=== PATIENT | female | born 1995 | race Caucasian/White ===

== ENCOUNTER → 2016-12-11 | Outpatient (CLI) | payer BC ==
[~2016-12-11] MED LIST: ACID REDUCER200 MG PO; BIRTH CONTROL; DESYREL 50MG50 MG PO; LAMICTAL200 MG PO; NAPROSYN500 MG PO; NEXPLANON68 MG ID; NORCO 325 MG-51 TAB PO
== END ==
LOC: BHSO 10:45
DX: F31.81 Bipolar II disorder (principal)

== ENCOUNTER → 2017-01-21 | Outpatient (CLI) | payer BC | LOC: BHSO 09:39 | DX: F31.81 Bipolar II disorder (principal) ==

== ENCOUNTER → 2017-02-17 | Outpatient (CLI) | payer BC | LOC: BHSO 10:37 | DX: F06.32 Mood disorder due to known physiological condition with major depressive-like episode (principal) ==

== ENCOUNTER → 2017-04-24 | Outpatient (CLI) | payer BC | LOC: BHSO 08:54 | DX: F31.81 Bipolar II disorder (principal) ==

== ENCOUNTER → 2017-06-01 | Outpatient (CLI) | payer BC | LOC: BHSO 08:23 | DX: F31.81 Bipolar II disorder (principal) ==

== ENCOUNTER → 2017-10-05 | Outpatient (CLI) | payer OTHER | LOC: BHSO 09:22 | DX: F31.81 Bipolar II disorder (principal) ==

== ENCOUNTER → 2017-11-24 | Outpatient (CLI) | payer OTHER | LOC: BHSO 09:25 | DX: F31.81 Bipolar II disorder (principal) | CPT/HCPCS: G0463 ==

== ENCOUNTER → 2017-12-28 | Outpatient (CLI) | payer OTHER | LOC: BHSO 08:21 | DX: F31.81 Bipolar II disorder (principal) | CPT/HCPCS: G0463 ==

== ENCOUNTER → 2018-02-15 | Outpatient (CLI) | payer OTHER | LOC: BHSO 13:58 | DX: F31.81 Bipolar II disorder (principal) | CPT/HCPCS: G0463 ==

== ENCOUNTER 2018-07-04 13:46 | Emergency (ER) | payer BC ==
[~2018-07-04] VITALS: Ht 160 cm; Wt 50.0 kg
[2018-07-04 13:48] VITALS: TEMP 99
[2018-07-04 14:42] LABS: BASO % 0.4 % (0.0-2.0); EOS # 0.3 (0.0-0.7); EOS % 2.6 % (0-4.0); GRAN % 73.9 % (42.2-75.2); HEMATOCRIT 42.1 % (37.0-47.0); HEMOGLOBIN 14.4 g/dl (12.5-16.0); LYMPH # 1.6 (1.2-3.4); LYMPH % 16.3 % (20.0-51.0); MEAN CELL VOLUME 88 fl (80.0-100.0); MEAN CORPUSCULAR HEMOGLOBIN 30 pg (27.0-31.0); MEAN CORPUSCULAR HGB CONC 34 g/dl (33.0-37.0); MONO # 0.6 (0.1-0.6); MONO % 6.4 % (1.7-9.3); PLATELET COUNT 342 K/mm3 (130-400); REDCELL DISTRIBUTION WIDTH-CV 11.9 % (11.5-14.5)
[2018-07-04 14:49] LABS: ALANINE AMINOTRANSFERASE 17 U/L (9-52); ALBUMIN 4.5 gm/dL (3.5-5.0); ALKALINE PHOSPHATASE 62 U/L (50-136); ANION GAP 14 mmol/L (7-16); AST,SGOT 21 U/L (15-37); BILIRUBIN,TOTAL 0.6 mg/dL (0.0-1.0); BLOOD UREA NITROGEN 7 mg/dL (7-17); CALCIUM 9.3 mg/dL (8.4-10.2); CARBON DIOXIDE 24 mmol/L (22-30); CHLORIDE 102 mmol/L (98-107); CREATININE, serum 0.64 mg/dL (0.52-1.25); GLUCOSE 83 mg/dL (74-106); POTASSIUM 3.7 mmol/L (3.4-5.0); SODIUM 139 mmol/L (137-145); TOTAL PROTEIN 7.9 gm/dL (6.4-8.2)
[2018-07-04 14:50] LABS: ACETAMINOPHEN < 10 ug/mL (10-30); ALCOHOL(ethanol),MEDICAL < 10 mg/dL; SALICYLATE < 1.0 mg/dL
[2018-07-04 15:46] LABS: COLLECTION METHOD CLEAN CATCH
[2018-07-04 15:53] LABS: MUCOUS Present /lpf; PH 5 (5-8); SQUAMOUS EPITHELIAL None Seen /hpf; URINE APPEARANCE Clear; URINE BACTERIA None Seen /hpf; URINE BILIRUBIN Negative (NEGATIVE); URINE BLOOD 1+ (NEGATIVE); URINE COLOR Yellow; URINE GLUCOSE Negative (NEGATIVE); URINE KETONE 1+ (NEGATIVE); URINE LEUKOCYTE ESTERASE Negative (NEGATIVE); URINE NITRATE Negative (NEGATIVE); URINE PROTEIN(semi-quant) 1+ (NEGATIVE); URINE UROBILINOGEN Negative (NEGATIVE)
[2018-07-04 16:00] LABS: TRICYCLIC ANTIDEPRESS URINE NEGATIVE
[2018-07-04 23:45] VITALS: BP 125/81; PULSE 67
== END 2018-07-04 23:45 | disposition home or self-care (01) ==
LOC: COL.ER 13:46
PROVIDERS: Emergency Medicine
DX: R42 Dizziness and giddiness (principal); R45.851 Suicidal ideations; F31.9 Bipolar disorder, unspecified; F12.10 Cannabis abuse, uncomplicated

== ENCOUNTER 2019-02-19 08:28 | Emergency (ER) | payer BC ==
[~2019-02-19] VITALS: Ht 160 cm; Wt 53.2 kg
[2019-02-19 08:31] VITALS: BP 141/79; TEMP 97.5
[2019-02-19] MEDS ORDERED: VYVANSE30 MG PO (08:52)
[2019-02-19] MEDS ORDERED: NORCO 325 MG-51 TAB PO (09:09)
[2019-02-19] MEDS ORDERED: CRUTCHES MC (09:13)
[2019-02-19 09:49] VITALS: PULSE 86
== END 2019-02-19 09:47 | disposition home or self-care (01) ==
LOC: COL.ER 08:28
DX: S93.402A Sprain of unspecified ligament of left ankle, initial encounter (principal); F32.9 Major depressive disorder, single episode, unspecified; F90.9 Attention-deficit hyperactivity disorder, unspecified type; X50.0XXA Overexertion from strenuous movement or load, initial encounter